=== PATIENT | male | born 1985 | race African-American/Black ===

== ENCOUNTER 2016-09-21 06:54 | Emergency (ER) | payer OTHER, MEDICAID ==
[~2016-09-21] VITALS: Ht 180.3 cm; Wt 149.7 kg
[2016-09-21] MEDS ORDERED: NKM (07:06)
[2016-09-21 07:10] VITALS: BP 155/97
--- NOTE | 2016-09-21 07:25 | Emergency Room Report ---
History of Present Illness General Chief Complaint: General Complaint Source: Patient Present Illness HPI Patient presents with bilateral lymph nodes and facial swelling for several days. Worse the last 24 hours. There is no pain. Denies any sore throat. He has a slight cough. He denies any fevers or chills. There's no rashes. The patient had an HIV test that was negative a month and half ago. He has protected sex. There is no discharge. He believes he had a mumps vaccination when he was young but is uncertain. He does drink alcohol but not daily. There is no problems with his saliva. No rashes, testicular pain, dysuria, headaches, sore throat, NVD, rashes. 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 Nursing Documentation: PMH: Agreed, PSxH: Agreed Nursing Documentation-PMH Past Medical History: No Stated History Review of Systems All Other Systems: negative except mentioned in HPI Physical Exam Vital Signs Date Time Temp Pulse Resp B/P Pulse Ox O2 Delivery O2 Flow Rate FiO2 09/21/16 07:02 98.8 100 18 155/97 94 Room Air Sp02 EP Interpretation: reviewed, normal General Appearance: well appearing, no apparent distress, GCS 15 Head: normocephalic Eyes: bilateral eye PERRL, bilateral eye normal inspection ENT: hearing grossly normal, normal pharynx, no angioedema, other - Bilateral parotid enlargement with cervical adenopathy. Neck: supple Respiratory: lungs clear, normal breath sounds Cardiovascular #1: regular rate, rhythm Cardiovascular #2: 2+ radial (R) Gastrointestinal: normal inspection, normal bowel sounds, non tender, no mass, non-distended Musculoskeletal: back normal, gait/station normal, normal range of motion Neurologic: alert, oriented x3 Psychiatric: mood/affect normal Skin: normal inspection, warm/dry Lymphatic: adenopathy - Bilateral cervical adenopathy that is small. Medical Decision Making Diagnostic Impression: Primary Impression: Lymphadenitis Additional Impression: Parotid gland enlargement ER Course Patient presents with swelling in his face and neck and differential includes peritonitis, within tinnitus, other vital infection. The patient will be evaluated with laboratory. Patient is started on doxycycline. Labs remarkable for neg HIV and normal otherwise. Discussed possible etiologies. Mumps lab sent. Patient stable for outpatient observation and treatment. Laboratory Tests Test 09/21/16 07:30 White Blood Count 8.2 K/UL (4.8-10.8) Red Blood Count 4.99 M/UL (4.70-6.10) Hemoglobin 14.5 G/DL (14.2-18.0) Hematocrit 45.2 % (42.0-52.0) Mean Corpuscular Volume 91 FL (80-99) Mean Corpuscular Hemoglobin 29.0 PG (27.0-31.0) Mean Corpuscular Hemoglobin Concent 32.0 G/DL (32.0-36.0) Red Cell Distribution Width 12.9 % (11.6-14.8) Platelet Count 279 K/UL (150-450) Mean Platelet Volume 7.2 FL (6.5-10.1) Neutrophils (%) (Auto) 70.6 % (45.0-75.0) Lymphocytes (%) (Auto) 15.2 % (20.0-45.0) L Monocytes (%) (Auto) 11.3 % (1.0-10.0) H Eosinophils (%) (Auto) 1.8 % (0.0-3.0) Basophils (%) (Auto) 1.2 % (0.0-2.0) Sodium Level 140 mEQ/L (135-145) Potassium Level 3.9 mEQ/L (3.4-4.9) Chloride Level 98 mEQ/L (98-107) Carbon Dioxide Level 30 mEQ/L (20-30) Anion Gap 12 (5-15) Blood Urea Nitrogen 15 mg/dL (7-23) Creatinine 1.0 mg/dL (0.7-1.2) Estimate Glomerular Filtration Rate > 60 mL/min (>60) Glucose Level 106 mg/dL (74-106) Calcium Level 9.5 mg/dL (8.6-10.2) Total Bilirubin 0.4 mg/dL (0.0-1.2) Aspartate Amino Transferase (AST) 17 U/L (5-40) Alanine Aminotransferase (ALT) 30 U/L (3-41) Alkaline Phosphatase 66 U/L (40-129) Total Protein 7.8 g/dL (6.6-8.7) Albumin 4.5 g/dL (3.5-5.2) Globulin 3.3 g/dL Albumin/Globulin Ratio 1.3 (1.0-2.7) HIV (1&2) Antibody Rapid Negative (NEGATIVE) Mumps Virus IgG Antibody Pending Last Vital Signs Date Time Temp Pulse Resp B/P Pulse Ox O2 Delivery O2 Flow Rate FiO2 09/21/16 10:03 98.7 89 16 140/85 97 Room Air Status: improved Disposition: HOME, SELF-CARE Condition: Improved Scripts Doxycycline Hyclate* (VIBRAMYCIN*) 100 Mg Capsule 100 MG ORAL EVERY 12 HOURS, #14 CAP 0 Refills Prov: Juan Carlos Cuadra M.D. 09/21/16 Juan Carlos Cuadra M.D. Sep 21, 2016 07:25
[2016-09-21 07:53] LABS: BASOPHILS % (AUTO) 1.2 % (0.0-2.0); EOSINOPHILS % (AUTO) 1.8 % (0.0-3.0); LYMPHOCYTES % (AUTO) 15.2 % (20.0-45.0); MEAN CORPUSCULAR VOLUME 91 FL (80-99); MEAN PLATELET VOLUME 7.2 FL (6.5-10.1); MONOCYTES % (AUTO) 11.3 % (1.0-10.0); NEUTROPHILS % (AUTO) 70.6 % (45.0-75.0); PLATELET COUNT 279 K/UL (150-450); RED BLOOD COUNT 4.99 M/UL (4.70-6.10); RED CELL DISTRIBUTION WIDTH 12.9 % (11.6-14.8); WHITE BLOOD COUNT 8.2 K/UL (4.8-10.8)
[2016-09-21 08:06] LABS: ALANINE AMINOTRANSFERASE 30 U/L (3-41); ALBUMIN/GLOBULIN RATIO 1.3 (1.0-2.7); ANION GAP 12 (5-15); ASPARTATE AMINO TRANSFERASE 17 U/L (5-40); CALCIUM 9.5 mg/dL (8.6-10.2); CARBON DIOXIDE 30 mEQ/L (20-30); CHLORIDE 98 mEQ/L (98-107); GLOMERULAR FILTRATION RATE > 60 mL/min (>60); HEMOLYSIS 6; POTASSIUM 3.9 mEQ/L (3.4-4.9); SODIUM 140 mEQ/L (135-145); TOTAL PROTEIN 7.8 g/dL (6.6-8.7)
[2016-09-21 09:30] VITALS: BP 140/85
[2016-09-21] MEDS ORDERED: VIBRAMYCIN100 MG ORAL (09:55)
[2016-09-21 10:03] VITALS: BP 140/85
[2016-09-22] MEDS ORDERED: CEPHALEXIN500 MG ORAL (20:35)
== END 2016-09-21 10:03 | disposition home or self-care (01) ==
LOC: EMR 07:38
DX: I88.9 Nonspecific lymphadenitis, unspecified (principal); K11.1 Hypertrophy of salivary gland
CPT/HCPCS: 36415; 80053; 85025; 86171; 86703; 99283

== ENCOUNTER 2016-09-22 13:45 | Emergency (ER) | payer OTHER, MEDICAID ==
[~2016-09-22] VITALS: Ht 177.8 cm; Wt 154.2 kg
[~2016-09-22 13:45] MED LIST: NKM; VIBRAMYCIN100 MG ORAL
[2016-09-22] MEDS ORDERED: Cefepime 1gm vial ONE (15:17)
[2016-09-22] MEDS ORDERED: Cefepime HCl 1 GM in D5W 55 ML IVPB ONE (17:15)
--- NOTE | 2016-09-22 17:31 | Emergency Room Report ---
History of Present Illness General Chief Complaint: Sore Throat Source: Patient Present Illness HPI Patient seen yesterday with parotitis and lymph node swelling in neck. He was started on doxy. Went to wedding last night in [place] (had one drink of alcohol). Worsened today with increased swelling. Pain with eat orange. No stridor or resp distress. No testicle pain. No problems swallowing. No fevers, NVD, dysuria, joint pain, headaches, rashes. Mumps titer sent, still pending. HIV negative yesterday. No pus from salivary glands. 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 Nursing Documentation: PMH: Agreed, PSxH: Agreed Nursing Documentation-PMH Past Medical History: No History, Except For Review of Systems All Other Systems: negative except mentioned in HPI Physical Exam Vital Signs Date Time Temp Pulse Resp B/P Pulse Ox O2 Delivery O2 Flow Rate FiO2 09/22/16 13:54 99.0 107 20 187/112 98 Room Air Sp02 EP Interpretation: reviewed, normal General Appearance: well appearing, no apparent distress, GCS 15 Head: normocephalic Eyes: bilateral eye PERRL, bilateral eye normal inspection ENT: normal pharynx, normal voice, other - parotid swelling worsened Neck: full range of motion, supple, thyroid normal, no bony tend, other - significant increase in swelling and induration of tissue around jaw and neck, mainly inferior to parotids. Respiratory: lungs clear, normal breath sounds Cardiovascular #1: regular rate, rhythm Cardiovascular #2: 2+ radial (R) Gastrointestinal: normal inspection, normal bowel sounds, non tender, no mass, non-distended Musculoskeletal: back normal, gait/station normal, normal range of motion Neurologic: alert, oriented x3, grossly normal Psychiatric: mood/affect normal Skin: normal inspection, warm/dry, other - no warmth or erythema over parotids Lymphatic: adenopathy - slight anterior and submandibular Medical Decision Making Diagnostic Impression: Primary Impression: Parotid gland enlargement Additional Impression: Swelling, lymph nodes ER Course Patient re-presents with worsened parotid and neck swelling. DDx: allergic reaction, parotiditis, lymphadenitis, mumps, sarcoidosis amongst others. Concern over increased swelling with undiagnosed condition. CT indicated. Labs review from yesterday. I requested that he check immunization records with mother. Discussed with Dr. Sullivan, ENT - suggests cephalosporin would be better coverage. Work to transfer patient for CT. Accept for scan at [facility]. Attempt to transfer to [facility] for ENT evaluation. Patient somewhat better after Rocephin. Swelling decreased (has had head elevated). Due to symmetrical parotid swelling, suggestive of generalized viral process possibly mumps. Decide to observe clinically. Patient stable for outpatient observation and treatment. Labs from yesterday Laboratory Tests Test 09/21/16 07:30 White Blood Count 8.2 K/UL (4.8-10.8) Red Blood Count 4.99 M/UL (4.70-6.10) Hemoglobin 14.5 G/DL (14.2-18.0) Hematocrit 45.2 % (42.0-52.0) Mean Corpuscular Volume 91 FL (80-99) Mean Corpuscular Hemoglobin 29.0 PG (27.0-31.0) Mean Corpuscular Hemoglobin Concent 32.0 G/DL (32.0-36.0) Red Cell Distribution Width 12.9 % (11.6-14.8) Platelet Count 279 K/UL (150-450) Mean Platelet Volume 7.2 FL (6.5-10.1) Neutrophils (%) (Auto) 70.6 % (45.0-75.0) Lymphocytes (%) (Auto) 15.2 % (20.0-45.0) L Monocytes (%) (Auto) 11.3 % (1.0-10.0) H Eosinophils (%) (Auto) 1.8 % (0.0-3.0) Basophils (%) (Auto) 1.2 % (0.0-2.0) Sodium Level 140 mEQ/L (135-145) Potassium Level 3.9 mEQ/L (3.4-4.9) Chloride Level 98 mEQ/L (98-107) Carbon Dioxide Level 30 mEQ/L (20-30) Anion Gap 12 (5-15) Blood Urea Nitrogen 15 mg/dL (7-23) Creatinine 1.0 mg/dL (0.7-1.2) Estimate Glomerular Filtration Rate > 60 mL/min (>60) Glucose Level 106 mg/dL (74-106) Calcium Level 9.5 mg/dL (8.6-10.2) Total Bilirubin 0.4 mg/dL (0.0-1.2) Aspartate Amino Transferase (AST) 17 U/L (5-40) Alanine Aminotransferase (ALT) 30 U/L (3-41) Alkaline Phosphatase 66 U/L (40-129) Total Protein 7.8 g/dL (6.6-8.7) Albumin 4.5 g/dL (3.5-5.2) Globulin 3.3 g/dL Albumin/Globulin Ratio 1.3 (1.0-2.7) HIV (1&2) Antibody Rapid Negative (NEGATIVE) Mumps Virus IgG Antibody Pending Last Vital Signs Date Time Temp Pulse Resp B/P Pulse Ox O2 Delivery O2 Flow Rate FiO2 09/22/16 20:53 99.5 91 14 130/79 100 Room Air Status: improved Reevaluation Impression (After discharge, reports from [facility] suggest cases of adult male mumps in [facility] currently. High suspicion for this.) Disposition: HOME, SELF-CARE Condition: Improved Scripts Cephalexin* (KEFLEX*) 500 Mg Capsule 500 MG ORAL EVERY 6 HOURS, #28 CAP Prov: Juan Carlos Cuadra M.D. 09/22/16 Referrals: NOT CHOSEN [facility]/,REFERRING (PCP) Juan Carlos Cuadra M.D. Sep 22, 2016 17:31
[2016-09-22 18:00] VITALS: BP 148/99
[2016-09-22 19:38] VITALS: BP 133/77
[2016-09-22] MEDS ORDERED: CEPHALEXIN500 MG ORAL (20:35)
[2016-09-22 20:53] VITALS: BP 130/79
== END 2016-09-22 20:53 | disposition home or self-care (01) ==
LOC: EMR 14:35 → EDBEDREQ 17:50 → CANBEDREQ 20:48 → EMR 20:53
DX: K11.1 Hypertrophy of salivary gland (principal); R59.0 Localized enlarged lymph nodes
CPT/HCPCS: 96374; 99284; J0692

== ENCOUNTER 2018-02-22 15:48 | Emergency (ER) | payer MEDICAID, OTHER ==
[~2018-02-22] VITALS: Ht 177.8 cm; Wt 163.3 kg
[~2018-02-22 15:48] MED LIST changes: +CEPHALEXIN500 MG ORAL
[2018-02-22] MEDS ORDERED: Ketorolac 30mg Inj IM ONE (16:30)
[2018-02-22 18:23] VITALS: BP 145/89
--- NOTE | 2018-02-22 19:07 | Emergency Room Report ---
History of Present Illness General Chief Complaint: Lower Extremity Injury Source: Patient, Medical Record Present Illness HPI Mr. El is a pleasant 32 yo male with hx of severe obesity who present with severe right calf and knee pain radiating to lateral thigh. Pain occurred suddenly while walking. Sharp lateral knee pain. worse with ambulation. Pain so severe it caused him to cry. No chest pain. no dyspnea. NO recent travel. His knee does click from time to tme Allergies: Coded Allergies: No Known Allergies (Unverified , 09/21/16) Nursing Documentation-[facility] Past Medical History: No History, Except For Review of Systems Constitutional: Denies: fever, malaise Respiratory: Denies: cough Cardiovascular: Denies: chest pain Gastrointestinal: Denies: abdominal pain All Other Systems: negative except mentioned in HPI Physical Exam Vital Signs Date Time Temp Pulse Resp B/P (MAP) Pulse Ox O2 Delivery O2 Flow Rate FiO2 02/22/18 15:52 98.0 104 18 159/96 95 Room Air 98.1 Sp02 EP Interpretation: reviewed, normal General Appearance: no apparent distress, alert, GCS 15, non-toxic Head: normocephalic, atraumatic Eyes: bilateral eye normal inspection ENT: hearing grossly normal, normal pharynx, no angioedema, normal voice Neck: full range of motion, supple/symm/no masses Respiratory: chest non-tender, lungs clear, normal breath sounds, speaking full sentences Cardiovascular #1: regular rate, rhythm, no edema Gastrointestinal: normal bowel sounds, non tender, soft, non-distended, no guarding, no rebound Rectal: deferred Genitourinary: normal inspection, no CVA tenderness Musculoskeletal: back normal, gait/station normal, normal range of motion, non- tender, other - FROM Neurologic: alert, oriented x3, responsive, motor strength/tone normal, sensory intact, speech normal Psychiatric: judgement/insight normal, memory normal, mood/affect normal, no suicidal/homicidal ideation Skin: normal color, no rash, warm/dry, well hydrated Lymphatic: no adenopathy Medical Decision Making ER Course right knee pain suspect cartilaginous injury d-dimer normal Additional labs were ordered. Unfortunately treatment nurse inadvertently stuck herself with needle after providing IM injection of ketorolac. Other X-Ray Diagnostic Results Other X-Ray Diagnostic Results : X-Ray ordered: right knee # of Views/Limited Vs Complete: 3 View Indication: Pain EP Interpretation: Yes Impression: No acute disease Electronically Signed by: This image has been electronically signed by Dr. Yuridia Toussaint Last Vital Signs Date Time Temp Pulse Resp B/P (MAP) Pulse Ox O2 Delivery O2 Flow Rate FiO2 02/22/18 18:23 98.6 85 15 145/89 98 Room Air 98.6 Disposition: HOME, SELF-CARE Condition: Stable Referrals: NOT CHOSEN [facility]/,REFERRING (PCP) YURIDIA TOUSSAINT Feb 22, 2018 19:07
[2018-02-22] MEDS ORDERED: IBUPROFEN600 MG ORAL (19:08)
[2018-02-22 19:17] VITALS: BP 138/90
--- NOTE | 2018-02-23 08:43 | Diagnostic Imaging Report ---
Indications: Pain Technique: Three views of the right knee Comparison: None Findings: No acute fractures. No dislocations. Joint spaces are preserved. No radiopaque foreign body. Normal mineralization. There is questionably a small suprapatellar effusion. Impression: No acute bony trauma Equivocal small joint effusion
== END 2018-02-22 19:21 | disposition home or self-care (01) ==
LOC: EMR 16:54
DX: M25.561 Pain in right knee (principal); E66.9 Obesity, unspecified; Z68.43 Body mass index [BMI] 50.0-59.9, adult
CPT/HCPCS: 36415; 73562; 85379; 86703; 86803; 87517; 99283; J1885